=== PATIENT | male | born 1985 | race American Indian/Alaskan Native ===

== ENCOUNTER 2019-01-25 09:52 | Emergency (ER) | payer SELFPAY ==
[2019-01-25] MEDS ORDERED: DUONEB *Not for PRN Use IH ONE (10:30)
--- NOTE | 2019-01-25 10:33 | Emergency Department Report ---
ED Chest Pain HPI - General Chief Complaint: Chest Pain Stated Complaint: CHEST/BACK PAIN/DIARRHEA Time Seen by Provider: 01/25/19 10:22 Source: patient Mode of arrival: Ambulatory Limitations: No Limitations - History of Present Illness Initial Comments: 33-year-old -Russian male presents to the emergency department with complaint of some midsternal chest pain with radiation towards his back, shortness of breath and some diarrhea. This first occurred last night and the patient thought that it was gas pains or related to his history of acid reflux. However he says that he drank a albert araceli and he did not provide any improvement in his symptoms. The symptoms did eventually go away last night but returned this morning. He says that he had 2 episodes of diarrhea this morning as well. He denies any past medical history. He is not a tobacco smoker and denies any illicit drug use. No family history of early cardiac disease or events. Other than the albert araceli, the patient has not taken anything for her symptoms prior to arrival today. No past medical history. No recent travel or sick contacts at home. - Related Data Allergies Allergy/AdvReac Type Severity Reaction Status Date / Time No Known Allergies Allergy Verified 01/25/19 09:54 Heart Score - HEART Score History: Slightly suspicious EKG: Normal Age: < 45 Risk factors: No known risk factors Troponin: < normal limit HEART Score: 0 - Critical Actions Critical Actions: 0-3 pts:0.9-1.7%risk of adverse cardiac event.Candidate for discharge ED Review of Systems ROS: Stated complaint: CHEST/BACK PAIN/DIARRHEA Other details as noted in HPI Comment: All other systems reviewed and negative Constitutional: denies: chills, fever Eyes: denies: eye pain, vision change ENT: denies: ear pain, throat pain Respiratory: shortness of breath. denies: cough Cardiovascular: chest pain. denies: palpitations Gastrointestinal: diarrhea. denies: vomiting Genitourinary: denies: dysuria, discharge Musculoskeletal: back pain. denies: arthralgia Skin: denies: rash, lesions Neurological: denies: headache, weakness ED Past Medical Hx - Past Medical History Previous Medical History?: No - Surgical History Past Surgical History?: No - Social History Smoking Status: Never Smoker Substance Use Type: None ED Physical Exam - General Limitations: No Limitations - Other Other exam information: GENERAL: The patient is well-developed well-nourished. HENT: Normocephalic. Atraumatic. Patient has moist mucous membranes. EYES: Extraocular motions are intact. NECK: Supple. Trachea is midline. CHEST/LUNGS: Clear to auscultation. There is no respiratory distress noted. HEART/CARDIOVASCULAR: Regular. There is no tachycardia. There is no murmur. ABDOMEN: Abdomen is soft, nontender. Patient has normal bowel sounds. There is no abdominal distention. SKIN: Skin is warm and dry. NEURO: The patient is awake, alert, and oriented. The patient is cooperative. The patient has no focal neurologic deficits. Normal speech. MUSCULOSKELETAL: There is no tenderness or deformity. There is no evidence of acute injury. ED Course Vital Signs 01/25/19 01/25/19 01/25/19 09:59 10:06 13:00 Temperature 98.5 F Pulse Rate 94 H 78 Respiratory 16 15 16 Rate Blood Pressure 117/74 Blood Pressure 114/78 [Left] O2 Sat by Pulse 98 100 Oximetry SAHIL score - Sahil Score Age > 65: (0) No Aspirin use within the Past 7 Days: (0) No 3 or more CAD Risk Factors: (0) No 2 or more Angina events in past 24 hrs: (1) Yes Known CAD with more than 50% Stenosis: (0) No Elevated Cardiac Markers: (0) No ST Deviation Greater than 0.5mm: (0) No SAHIL Score: 1 ED Medical Decision Making - Lab Data Result diagrams: 01/25/19 10:40 01/25/19 10:40 - EKG Data -: EKG Interpreted by Co EKG shows normal: sinus rhythm, axis, intervals, QRS complexes, ST-T waves Rate: normal - EKG Data When compared to previous EKG there are: previous EKG unavailable Interpretation: normal EKG - Radiology Data Radiology results: image reviewed interpreted by me: Chest x-ray does not show any acute process. There are no pleural effusions, obvious pneumonia and there is no pneumothorax. - Medical Decision Making Patient presents with some midsternal chest discomfort with radiation towards the back. EKG does not show any signs of ST elevation [place], ischemia or dysrhythmia. Chest x-ray does not show any pleural effusions, pneumonia, focal consolidation, pneumothorax, or any other acute process. Labs have been unremarkable including a negative troponin. Patient got some improvement with a nebulizer treatment. He also got some improvement with a GI cocktail. He is low on the heart score criteria and SAHIL score. His vital signs were stable and being afebrile. No tachycardia or hypoxia. He is low on the Wells score and negative on the pulmonary embolism rule out criteria. Throughout these reasons, the patient appears safe for discharge home at this time. He has been given a referral for primary care and his information has been sent to [facility] cardiology for a close outpatient follow-up. He will return to the emergency Department with any worsening of his symptoms or any acute distress. - Differential Diagnosis bronchospasm, GERD, TX, pneumonia Critical Care Time: No Critical care attestation.: If time is entered above; I have spent that time in minutes in the direct care of this critically ill patient, excluding procedure time. ED Disposition Clinical Impression: Chest pain Qualifiers: Chest pain type: unspecified Qualified Code(s): R07.9 - Chest pain, unspecified Disposition: - TO HOME OR SELFCARE Is pt being admited?: No Condition: Stable Instructions: Chest Pain (ED) Additional Instructions: Please follow-up with a primary care physician in the next few days. You will be contacted by someone at [facility] for a close outpatient follow-up appointment within the next 48 hours. Return to the emergency Department with any worsening of your symptoms or any acute distress. Referrals: CHRIS MEDINA MD [Staff Physician] - 2-3 Days [facility] [Outside] - 2-3 Days [facility] [Provider Group] - 2-3 Days Time of Disposition: 12:54
--- NOTE | 2019-01-25 10:50 | XRay Report ---
CHEST 2 VIEWS INDICATION: Chest Pain. COMPARISON: None. FINDINGS: Support devices: None. Heart: Within normal limits. Pulmonary vasculature: Lungs/pleura: No acute air space or interstitial disease. No pneumothorax. Additional findings: None. IMPRESSION: 1. No acute findings. Signer Name: Brandon Sandy MD Signed: 01/25/2019 10:45 AM Workstation Name: [id number]
[2019-01-25 11:08] LABS: Basophils % (Auto) 0.7 % (0.0-1.8); Eosinophils # (Auto) 0.2 K/mm3 (0.0-0.4); Eosinophils % (Auto) 5.4 % (0.0-4.3); Hematocrit 46.9 % (35.5-45.6); Hemoglobin 16.1 gm/dl (11.8-15.2); Lymphocytes # (Auto) 1.2 K/mm3 (1.2-5.4); Lymphocytes % (Auto) 25.9 % (13.4-35.0); Mean Corpuscular HGB Conc 34 % (32-34); Mean Corpuscular Volume 85 fl (84-94); Monocytes # (Auto) 0.4 K/mm3 (0.0-0.8); Monocytes % (Auto) 8.1 % (0.0-7.3); Platelet Count 261 K/mm3 (140-440); Red Blood Count 5.52 M/mm3 (3.65-5.03); Red Cell Distribution Width 12.6 % (13.2-15.2)
[2019-01-25 11:26] LABS: BUN/Creatinine Ratio 10; Blood Urea Nitrogen 9 mg/dL (9-20); Calcium 9.3 mg/dL (8.4-10.2); Hemolysis Index 10
[2019-01-25 11:27] LABS: Alanine Aminotransferase 24 units/L (7-56); Albumin 4.4 g/dL (3.9-5)
[2019-01-25 11:33] LABS: Bilirubin,Direct < 0.2 mg/dL (0-0.2)
[2019-01-25] MEDS ORDERED: LIDOCAINE VISCOUS 2% PO ONE (11:59)
[2019-01-25] MEDS ORDERED: ALUM-MAG HYDROX-SIMETH 200-200-20MG/5ML PO ONE (11:59)
[2019-01-25 13:01] VITALS: BP 114/78
== END 2019-01-25 13:00 | disposition home or self-care (01) ==
LOC: ED 09:52
DX: R07.2 Precordial pain (principal)
CPT/HCPCS: 36415; 71046; 80048; 80076; 83690; 84484; 85025; 93005; 93010; 94640

== ENCOUNTER 2020-12-29 09:25 | Emergency (ER) | payer SELFPAY ==
[2020-12-29 09:35] VITALS: BP 110/76
[2020-12-29 10:06] LABS: Basophils % (Auto) 0.5 % (0.0-1.8); Eosinophils # (Auto) 0.1 K/mm3 (0.0-0.4); Hematocrit 45.2 % (35.5-45.6); Hemoglobin 15.4 gm/dl (11.8-15.2); Lymphocytes # (Auto) 1.2 K/mm3 (1.2-5.4); Lymphocytes % (Auto) 29.4 % (13.4-35.0); Mean Corpuscular HGB Conc 34 % (32-34); Mean Corpuscular Volume 87 fl (84-94); Monocytes # (Auto) 0.4 K/mm3 (0.0-0.8); Monocytes % (Auto) 9.6 % (0.0-7.3); Platelet Count 269 K/mm3 (140-440); Red Blood Count 5.22 M/mm3 (3.65-5.03); Red Cell Distribution Width 12.8 % (13.2-15.2)
[2020-12-29 10:08] LABS: Alanine Aminotransferase 29 units/L (7-56); Albumin 4.7 g/dL (3.9-5); BUN/Creatinine Ratio 15; Blood Urea Nitrogen 12 mg/dL (9-20); Calcium 9.7 mg/dL (8.4-10.2); Hemolysis Index 8
[2020-12-29 11:15] LABS: Bilirubin,Urine NEG (Negative); Blood,Urine NEG (Negative); Color,Urine Yellow (Yellow); Mucus,Urine 3+ /HPF; Protein,Urine <15 mg/dL mg/dL (Negative); Urobilinogen,Urine < 2.0 mg/dL (<2.0)
--- NOTE | 2020-12-29 11:45 | Emergency Department Report ---
ED General Adult HPI - General Chief complaint: Abdominal Pain Stated complaint: STOMACH DISCOMFOR/ DIAHRREA Time Seen by Provider: 12/29/20 11:27 Source: patient Mode of arrival: Ambulatory Limitations: No Limitations - History of Present Illness Initial comments: Patient is a 35-year-old male who presents emergency room with complaints of "stomach discomfort" for 5 months. He states he has associated 2-3 episodes of loose stools a day but states that it is not watery. He states he also has a decreased appetite. He denies any fever, nausea, vomiting, hematochezia, melena, hematemesis, urinary symptoms, pain or swelling in the testicles. No pa st medical history. He states he has had these symptoms once in the past and was advised that it was likely due to stress. He has not seen a primary care doctor or a GI doctor for the symptoms. No allergies to medicines. No past surgical history. He endorses marijuana use but denies tobacco and alcohol use. - Related Data Previous Rx's Medication Instructions Recorded Last Taken Type Dicyclomine [Bentyl] 10 mg PO TID PRN #12 capsule 12/29/20 Unknown Rx Allergies Allergy/AdvReac Type Severity Reaction Status Date / Time No Known Allergies Allergy Verified 12/29/20 09:35 ED Review of Systems ROS: Stated complaint: STOMACH DISCOMFOR/ DIAHRREA Other details as noted in HPI Comment: All other systems reviewed and negative ED Past Medical Hx - Social History Smoking Status: Never Smoker Substance Use Type: None - Medications Home Medications: Home Medications Medication Instructions Recorded Confirmed Last Taken Type Dicyclomine [Bentyl] 10 mg PO TID PRN #12 capsule 12/29/20 Unknown Rx ED Physical Exam - General Limitations: No Limitations General appearance: alert, in no apparent distress - Head Head exam: Present: atraumatic, normocephalic - Eye Eye exam: Present: normal appearance - ENT ENT exam: Present: mucous membranes moist - Respiratory Respiratory exam: Present: normal lung sounds bilaterally. Absent: respiratory distress, wheezes, rales, rhonchi, stridor, chest wall tenderness, accessory muscle use, decreased breath sounds, prolonged expiratory - Cardiovascular Cardiovascular Exam: Present: regular rate, normal rhythm, normal heart sounds. Absent: systolic murmur, diastolic murmur, rubs, gallop - GI/Abdominal GI/Abdominal exam: Present: soft, normal bowel sounds. Absent: distended, tenderness, rebound, rigid - Neurological Exam Neurological exam: Present: alert, oriented X3 - Psychiatric Psychiatric exam: Present: normal affect, normal mood - Skin Skin exam: Present: warm, dry, intact ED Course Vital Signs 12/29/20 09:32 Temperature 98.3 F Pulse Rate 80 Respiratory 18 Rate Blood Pressure 110/76 O2 Sat by Pulse 99 Oximetry ED Medical Decision Making - Lab Data Result diagrams: 12/29/20 09:38 12/29/20 09:38 Lab Results 12/29/20 12/29/20 12/29/20 Range/Units 09:38 09:38 Unknown WBC 4.2 L (4.5-11.0) K/mm3 RBC 5.22 H (3.65-5.03) M/mm3 Hgb 15.4 H (11.8-15.2) gm/dl Hct 45.2 (35.5-45.6) % MCV 87 (84-94) fl MCH 29 (28-32) pg MCHC 34 (32-34) % RDW 12.8 L (13.2-15.2) % Plt Count 269 (140-440) K/mm3 Lymph % (Auto) 29.4 (13.4-35.0) % [place] % (Auto) 9.6 H (0.0-7.3) % Eos % (Auto) 3.0 (0.0-4.3) % Baso % (Auto) 0.5 (0.0-1.8) % Lymph # (Auto) 1.2 (1.2-5.4) K/mm3 [place] # (Auto) 0.4 (0.0-0.8) K/mm3 Eos # (Auto) 0.1 (0.0-0.4) K/mm3 Baso # (Auto) 0.0 (0.0-0.1) K/mm3 Seg Neutrophils % 57.5 (40.0-70.0) % Seg Neutrophils # 2.4 (1.8-7.7) K/mm3 Sodium 139 (137-145) mmol/L Potassium 3.7 (3.6-5.0) mmol/L Chloride 102.6 (98-107) mmol/L Carbon Dioxide 29 (22-30) mmol/L Anion Gap 11 mmol/L BUN 12 (9-20) mg/dL Creatinine 0.8 (0.8-1.3) mg/dL Estimated GFR > 60 ml/min BUN/Creatinine Ratio 15 % Glucose 91 (75-100) mg/dL Calcium 9.7 (8.4-10.2) mg/dL Total Bilirubin 0.90 (0.1-1.2) mg/dL AST 24 (5-40) units/L ALT 29 (7-56) units/L Alkaline Phosphatase 83 (35-129) units/L Total Protein 7.9 (6.3-8.2) g/dL Albumin 4.7 (3.9-5) g/dL Albumin/Globulin Ratio 1.5 % Urine Color Yellow (Yellow) Urine Turbidity Clear (Clear) Urine pH 5.0 (5.0-7.0) Ur Specific [place] 1.024 (1.003-1.030) Urine Protein <15 mg/dl (Negative) mg/dL Urine Glucose (UA) Neg (Negative) mg/dL Urine Ketones Tr (Negative) mg/dL Urine Blood Neg (Negative) Urine Nitrite Neg (Negative) Urine Bilirubin Neg (Negative) Urine Urobilinogen < 2.0 (<2.0) mg/dL Ur Leukocyte Esterase Neg (Negative) Urine WBC (Auto) 1.0 (0.0-6.0) /HPF Urine RBC (Auto) 1.0 (0.0-6.0) /HPF U Epithel Cells (Auto) < 1.0 (0-13.0) /HPF Urine Mucus 3+ /HPF - Medical Decision Making Patient is a 35-year-old male who presents emergency room with complaints of "stomach discomfort" for 5 months. He states he has associated 2-3 episodes of loose stools a day but states that it is not watery. He states he also has a decreased appetite. He denies any fever, nausea, vomiting, hematochezia, melena, hematemesis, urinary symptoms, pain or swelling in the testicles. No past medical history. He states he has had these symptoms once in the past and was advised that it was likely due to stress. He has not seen a primary care doctor or a GI doctor for the symptoms. No allergies to medicines. No past surgical history. He endorses marijuana use but denies tobacco and alcohol use. Vitals are normal. No abdominal tenderness on exam, no guarding, no rebound, no rigidity, nor masses, no peritoneal signs. Labs are stable. UA within normal limits. Discussed all results with patient answer questions. Discussed the importance of outpatient follow-up. Patient be referred to primary care doctor and GI doctor. Discussed return precautions. Patient given prescription for Bentyl. Advised patient Please take medication as prescribed as needed. Increase your fluid intake. Eat a bland liquid diet and slowly advance her diet as tolerated. Follow-up with a primary care doctor. Follow-up with a GI doct or. Return to emergency room for any new or worsening symptoms. Critical care attestation.: If time is entered above; I have spent that time in minutes in the direct care of this critically ill patient, excluding procedure time. ED Disposition Clinical Impression: Abdominal discomfort, Loose stools, Decreased appetite Disposition: TO HOME OR SELFCARE Is pt being admited?: No Does the pt Need Aspirin: No Condition: Stable Additional Instructions: Please take medication as prescribed as needed. Increase your fluid intake. Eat a bland liquid diet and slowly advance her diet as tolerated. Follow-up with a primary care doctor. Follow-up with a GI doctor. Return to emergency room for any new or worsening symptoms. Prescriptions: Dicyclomine [Bentyl] 10 mg PO TID PRN #12 capsule PRN Reason: abdominal cramping Referrals: [facility] [Provider Group] - 3-5 Days [facility] [Provider Group] - 3-5 Days LESLI POLLARD MD [Staff Physician] - 3-5 Days [facility] [Outside] - 3-5 Days [facility] [Outside] - 3-5 Days Time of Disposition: 11:43 Print Language: INDONESIAN
== END 2020-12-29 11:30 | disposition home or self-care (01) ==
LOC: ED 09:25
DX: R19.5 Other fecal abnormalities (principal); R10.9 Unspecified abdominal pain; R63.0 Anorexia; Z79.899 Other long term (current) drug therapy
CPT/HCPCS: 36415; 80053; 81001; 85025